=== PATIENT | female | born 1970 | race Caucasian/White ===

== ENCOUNTER 2020-08-20 01:28 | Emergency (ER) | payer BC ==
[2020-08-20 01:36] VITALS: BP 137/93; PULSE 77; TEMP 99.1; BMI 26.6
[2020-08-20] MEDS ORDERED: IBUPROFEN 600 MG TABLET (FP) PO ONE ×2 (01:40→01:45)
[2020-08-20] MEDS ORDERED: CYCLOBENZAPRINE HCL 5 MG TABLET PO ONE (01:40)
[2020-08-20] MEDS ORDERED: CYCLOBENZAPRINE HCL 10 MG TABLET (FP) ONE (01:45)
== END 2020-08-20 02:10 | disposition home or self-care (01) ==
LOC: FER 01:28
DX: M62.830 Muscle spasm of back (principal); M54.6 Pain in thoracic spine
CPT/HCPCS: 99283-25